=== PATIENT | female | born 1945 | race African-American/Black ===

== ENCOUNTER 2017-11-30 20:31 | Emergency (ER) | payer MEDICARE, BC ==
[2017-11-30] MEDS ORDERED: Lidocaine 1% w/Epinephrine 1:100K 20 ML VIAL ONE (21:59)
[2017-11-30] MEDS ORDERED: Adacel (T-DAP) 0.5 ML VIAL ONE (21:59)
[2017-11-30] MEDS ORDERED: Bacitracin Zinc 1 Packet ONE ×2 (23:25→23:32)
[2017-11-30] MEDS ORDERED: Rabies Immune Globulin 1500 UNITS/10 ML VIAL IM SCH (23:30)
[2017-11-30] MEDS ORDERED: Rabies Vaccine Human 2.5 UNITS VIAL IM ONE (23:30)
== END 2017-12-01 00:55 | disposition home or self-care (01) ==
LOC: ERS 20:31
DX: S51.811A Laceration without foreign body of right forearm, initial encounter (principal); I10 Essential (primary) hypertension; Z79.899 Other long term (current) drug therapy; Z79.82 Long term (current) use of aspirin; Z23 Encounter for immunization; W54.0XXA Bitten by dog, initial encounter
CPT/HCPCS: 12002; 90375; 90471; 90675; 90715; 96372; J2001

== ENCOUNTER → 2017-12-04 | Day surgery (SDC) | payer MEDICARE, BC ==
[~2017-12-04] MED LIST: Bacitracin Zinc 1 Packet ONE; Rabies Vaccine 2.5 UNIT VIAL IM SCH
== END ==
LOC: ER/OP 10:44
PROVIDERS: ATTEND Neuromusculoskeletal Medicine & OMM
DX: Z23 Encounter for immunization (principal)
CPT/HCPCS: 90471; 90675

== ENCOUNTER → 2017-12-08 | Day surgery (SDC) | payer MEDICARE, BC ==
[~2017-12-08] MED LIST changes: +Rabies Vaccine 2.5 UNIT VIAL IM ONE; -Rabies Vaccine 2.5 UNIT VIAL IM SCH
== END ==
LOC: ER/OP 16:16 → EDSTATUS 12-13 13:49
PROVIDERS: ATTEND Nurse Practitioner Family
DX: Z23 Encounter for immunization (principal); Z20.3 Contact with and (suspected) exposure to rabies
CPT/HCPCS: 90471; 90675

== ENCOUNTER → 2017-12-15 | Day surgery (SDC) | payer MEDICARE, BC ==
[~2017-12-15] MED LIST changes: -Bacitracin Zinc 1 Packet ONE; -Rabies Vaccine 2.5 UNIT VIAL IM ONE; +Rabies Vaccine Human 2.5 UNITS VIAL IM ONE
== END ==
LOC: EDSTATUS 13:23 → ER/OP 13:36 → ERS 13:36
PROVIDERS: ATTEND Nurse Practitioner Family
DX: Z23 Encounter for immunization (principal); E78.5 Hyperlipidemia, unspecified; I10 Essential (primary) hypertension; Z20.3 Contact with and (suspected) exposure to rabies
CPT/HCPCS: 90471; 90675